=== PATIENT | male | born 1950 | race Caucasian/White ===

== ENCOUNTER 2021-12-19 09:20 | Emergency (ER) | payer MEDICARE, MEDICAID, SELFPAY ==
--- NOTE | ~2021-12-19 | XR_ITS ---
EXAMINATION: XR chest 1V portable INDICATION: Choking TECHNIQUE: Portable AP chest at 1107 hours COMPARISON: None available FINDINGS: There is mild atelectasis of the lung bases. There is no pleural effusion or pneumothorax. The cardiomediastinal silhouette is normal. IMPRESSION: 1. Mild atelectasis of the lung bases. Reviewed, dictated and finalized at location [facility].
[2021-12-19 10:15] VITALS: BP 100/72; PULSE 72; RESP 20; TEMP 36.3; O2SAT 98
--- NOTE | 2021-12-19 11:23 | ED.GENADULT ---
HPI - General Adult General Chief complaint: Unspecified Stated complaint: AMBULANCE Time Seen by Provider: 12/19/21 11:23 Source: patient Mode of arrival: EMS History of Present Illness HPI narrative: is a 71-year-old gentleman presents from assisted living with a choking episode apparently the patient was choking on some pork rinds was able to speak and was not short of breath with no nausea vomiting no abdominal pain, the patient was brought in via EMS patient is clearly back to his normal self and lungs are clear no nausea vomiting no abdominal pain no choking at this time. Onset (ago): hour(s) Severity: mild Review of Systems Review of Systems: All systems reviewed & are unremarkable except as noted in HPI and below PMFSH Past Medical History Medical History Dementia Exam Const: General: cooperative, healthy appearing, comfortable, no acute distress and well developed HENMT: Head: normal to inspection General nose exam: Normal external nose present Face and sinus: normal facial exam Mouth: Yes Normal oral and palatal mucosa present Throat: posterior oropharynx normal Eyes: General: appearance normal, both eyes and all related structures Neck: Neck: normal visual inspection, full ROM and no lymphadenopathy Chest: Chest palpation & inspection: normal inspection of the chest Resp: Effort & Inspection: normal respiratory effort Cardio: Jugular venous distension: no JVD GI: Inspection: normal to inspection Back/Spine/Pelvis: Back: no CVA tenderness Cervical Spine: normal cervical lordosis Skin: General skin exam: normal color and no rashes or lesions noted Neuro: General: gait normal Course Course Emergency Course: x-ray was reviewed with patient and was within normal limits. Vital Signs Vital signs: Vital Signs Temperature 36.3 C L 12/19/21 10:15 Pulse Rate 72 12/19/21 10:15 Respiratory Rate 12/19/21 10:15 Blood Pressure 100/72 12/19/21 10:15 Pulse Oximetry 98 12/19/21 10:15 Temperature 36.3 C L 12/19/21 10:15 Pulse Rate 72 12/19/21 10:15 Respiratory Rate 20 12/19/21 10:15 Blood Pressure 100/72 12/19/21 10:15 Pulse Oximetry 98 12/19/21 10:15 Medical Decision Making Vital Signs Vital Signs: Vital Signs Temperature 36.3 C L 12/19/21 10:15 Pulse Rate 72 12/19/21 10:15 Respiratory Rate 20 12/19/21 10:15 Blood Pressure 100/72 12/19/21 10:15 Pulse Oximetry 98 12/19/21 10:15 Temperature 36.3 C L 12/19/21 10:15 Pulse Rate 72 12/19/21 10:15 Respiratory Rate 20 12/19/21 10:15 Blood Pressure 100/72 12/19/21 10:15 Pulse Oximetry 98 12/19/21 10:15 Critical Care Time Critical Care Time Critical Care Time: No Discharge Plan Discharge Clinical Impression: Choking Qualifiers: Encounter type: initial encounter Qualified Code(s): T17.308A - Unspecified foreign body in larynx causing other injury, initial encounter Additional Instructions: follow-up with primary care physician if symptoms persist or worsen. Follow-up/Referrals: Sivan,IRVIN Odell [Primary Care Provider] - Time of Disposition: 11:26
[2021-12-19 11:52] VITALS: BP 104/63; PULSE 66; RESP 20; TEMP 36.9; O2SAT 98
== END 2021-12-19 11:54 | disposition home or self-care (01) ==
PROVIDERS: Emergency Provider Emergency Medicine; PCP Physician Assistant
DX: T17.308A Unspecified foreign body in larynx causing other injury, initial encounter (principal)
CPT/HCPCS: 71045; 99283

== ENCOUNTER 2021-12-22 12:57 | Emergency (ER) | payer MEDICARE, MEDICAID, SELFPAY ==
--- NOTE | ~2021-12-22 | XR_ITS ---
EXAMINATION: XR chest 2V DATE: 12/22/2021 13:20 INDICATION: Globus sensation TECHNIQUE: AP and lateral views of the chest are obtained. COMPARISON: 12/19/2021 FINDINGS: Mild atelectasis of the lung bases has improved. There is no pleural effusion or pneumothor ax. The cardiomediastinal silhouette is normal. There is moderate thoracic and severe lumbar spondylo sis. There is a lucent lesion with sclerotic margins in the left humeral shaft. IMPRESSION: 1. Mild atelectasis of the lung bases with improvement. 2. Lucent lesion of the left humerus. Follow-up with nonemergent, dedicated left humerus radiographs is recommended. Reviewed, dictated and finalized at location A. IMPRESSION: 1. Mild atelectasis of the lung bases with improvement. 2. Lucent lesion of the left humerus. Follow-up with nonemergent, dedicated lef t humerus radiographs is recommended.
[2021-12-22 13:00] VITALS: BP 141/76; PULSE 97; RESP 20; TEMP 36.4; O2SAT 97
--- NOTE | 2021-12-22 13:15 | ED.GENADULT ---
HPI - General Adult General Chief complaint: Skin/Abscess/Foreign Body Stated complaint: ambulance Time Seen by Provider: 12/22/21 12:59 Source: patient and EMS Mode of arrival: ambulatory Limitations: no limitations History of Present Illness HPI narrative: Rosendo is a 71M with a PMH of GERD and ingested foreign bodies requiring endoscopic removal that was brought in by EMS choking. He tried eating a pork steak without his dentures and developed a globus sensation and cannot get anything down. There is no CP, SOB, N/V or syncope. Related Data Home Medications Medication Instructions Recorded Confirmed Zoloft 100 mg BYMOUTH DAILY 12/22/21 12/22/21 buspirone 5 mg PO BID 12/22/21 12/22/21 divalproex 125 mg PO DAILY 12/22/21 12/22/21 famotidine 20 mg PO DAILY 12/22/21 12/22/21 metformin 500 mg PO BID 12/22/21 12/22/21 mirtazapine 15 mg PO HS 12/22/21 12/22/21 quetiapine 50 mg PO DAILY 12/22/21 12/22/21 quetiapine 100 mg PO DAILY 12/22/21 12/22/21 Allergies Allergy/AdvReac Type Severity Reaction Status Date / Time codeine Allergy Other Verified 12/22/21 17:54 Review of Systems Constitutional: Constitutional: Reports no additional constitutional complaints Eyes: Eyes: Reports no additional eye complaints ENT: Reports system reviewed and no additional complaints, except as documented Cardiovascular: Cardiovascular: Reports no additional cardiovascular complaints Respiratory: Respiratory: Reports no additional respiratory complaints Gastrointestinal: Gastrointestinal: Reports as per HPI Genitourinary: Genitourinary: Reports no additional male genitourinary complaints Musculoskeletal: Musculoskeletal: Reports no additional musculoskeletal complaints Integumentary/Breasts: Skin/Breast: Reports system reviewed and no additional complaints, except as docu Neurologic: Reports system reviewed and no additional complaints, except as documented Psychiatric: Psychiatric: Reports no additional psychiatric complaints Endocrine: Endocrine: Reports no additional endocrine complaints Hematologic/Lymphatic: Hematologic/Lymphatic: Reports no additional hematologic/lymphatic complaints Allergic/Immunologic: Allergic/Immunologic: Reports no additional allergic/immunologic complaints [facility] Past Medical History Medical History (Updated 12/22/21 @ 17:52 by Ameena Campos CRNA) Dementia Diabetes GERD (gastroesophageal reflux disease) Social History Social History (Updated 12/22/21 @ 17:55 by Ameena Campos CRNA) Smoking status: Former smoker Tobacco type: cigarettes Exam Const: General: alert Orientation/consciousness: patient oriented x3 Limitations: No altered mental status Other: Mild distress HENMT: Head: normal to inspection Other: Excessive drooling at the bedside into and emesis bag and he was leaning forward. Eyes: Conjunctivae: conjunctivae normal Pupils: Equal, round and reactive pupils present Neck: Neck: normal visual inspection Chest: Chest palpation & inspection: normal inspection of the chest Resp: Effort & Inspection: normal respiratory effort Auscultation: clear to auscultation bilaterally Cardio: Rate: regular rate Rhythm: regular rhythm GI: Inspection: non-distended GI Palp: Yes Soft to palpation, No Tenderness to palpation present (GI) and No Guarding due to palpation present (GI) Skin: General skin exam: normal color Rashes: no rashes Neuro: General: patient oriented x3 and moves all extremities Extrem: General: normal to inspection Psych: Mental Status: mental status grossly normal Course Course Emergency Course: Ordered Xray and labs. I spoke with Dr. Condon of GI who recommended 1mg of glucagon, sublingual nitro, ativan and Cardiazem spread out over half an hour if BP tolerated it. EXAMINATION: XR chest 2V DATE: 12/22/2021 13:20 INDICATION: Globus sensation TECHNIQUE: AP and lateral views of the chest are obtained. COMPARISON: 12/19/2021 FINDING
[2021-12-22 13:21] LABS: Basophils Absolute Auto 0.04 K/mm3 (0.00-0.10); Basophils Percent Auto 0.5 % (0.0-1.0); Eosinophils Absolute Auto 0.08 K/mm3 (0.02-0.50); Eosinophils Percent Auto 1.1 % (1.0-6.0); Hematocrit 48.5 % (37.0-46.0); Hemoglobin 15.8 g/dL (12.4-15.3); Immature Granulocyte Absolute 0.02 K/mm3 (0.00-0.00); Immature Granulocyte Percent A 0.3 % (0.0-0.0); Lymphocytes Absolute Auto 2.27 K/mm3 (1.10-4.50); Lymphocytes Percent Auto 31.2 % (18.0-42.0); Mean Corpuscular HGB Conc 32.6 g/dL (32.0-36.0); Mean Corpuscular Hemoglobin 30.5 pg (27.0-31.0); Mean Corpuscular Volume 93.6 fL (78.0-102.0); Mean Platelet Volume 10.4 fl (8.7-11.0); Monocytes Absolute Auto 0.45 K/mm3 (0.10-0.90); Monocytes Percent Auto 6.2 % (2.0-11.0); Neutrophils Absolute Auto 4.4 K/mm3 (1.7-7.2); Neutrophils Percent Auto 60.7 % (50.0-70.0); Platelet Count Result 318 K/mm3 (150-420); Red Blood Count 5.18 M/mm3 (4.70-6.10); White Blood Count 7.3 K/mm3 (4.8-10.8)
[2021-12-22 13:38] LABS: Alanine Aminotransferase 23 U/L (16-63); Albumin Level 4.2 g/dL (3.4-5.0); Alkaline Phosphatase 114 U/L (46-116); Anion Gap 8 mmol/L (8-16); Aspartate Amino Transferase 26 U/L (15-37); Bilirubin,Total 0.5 mg/dL (0.00-1.00); Blood Urea Nitrogen 18 mg/dL (7-18); Calcium 9.8 mg/dL (8.5-10.1); Carbon Dioxide 27 mmol/L (21-32); Chloride 101 mmol/L (98-108); Estimated Glomerular Filt Rate > 60; Glucose 121 mg/dL (70-99); Magnesium 2.3 mg/dL (1.8-2.4); Osmolality Calculated 284 mOsm/kg (285-295); Potassium 4.6 mmol/L (3.5-5.1); Sodium 136 mmol/L (136-145); Total Protein 7.9 g/dL (6.4-8.2)
[2021-12-22] MEDS: NITROGLYCERIN SL 0.4 MG TABLET SUBLINGUAL ×2 (13:47→15:10)
[2021-12-22] MEDS: GLUCAGON FOR INJ 1 MG VIAL IM (13:48)
--- NOTE | 2021-12-22 13:50 | PC.NURSE ---
pt watching tv. no resp distress. continues with excessive clear phlegm , spitting in bag.
[2021-12-22 14:10] VITALS: BP 121/74; PULSE 75; RESP 20; O2SAT 96
[2021-12-22] MEDS: LORazepam INJ (*CRX) 2 MG/ML VIAL 1 MG IV PUSH (14:18)
[2021-12-22] MEDS: dilTIAZem HCl INJ 25 MG/5 ML VIAL 5 MG IV PUSH (14:47)
[2021-12-22 16:26] VITALS: BP 103/69; PULSE 72; RESP 20; O2SAT 97
== END 2021-12-22 16:55 | disposition short-term general hospital (02) ==
PROVIDERS: Emergency Provider Family Medicine; PCP Physician Assistant
DX: K22.2 Esophageal obstruction (principal); E11.9 Type 2 diabetes mellitus without complications; K21.9 Gastro-esophageal reflux disease without esophagitis; Z87.891 Personal history of nicotine dependence
CPT/HCPCS: 36415; 71046; 80053; 83735; 85025; 96372; 96374; 96375; 99285; A9270; J1610; J2060

== ENCOUNTER 2021-12-22 17:31 | Day surgery (SDC) | payer MEDICARE, SELFPAY ==
--- NOTE | 2021-12-22 17:51 | P.PNAN_ITS ---
Anes - Eval Pre Procedure Date/Time: 12/22/21 17:51 Pre Op Diagnosis: gi Patient Data Age: 71 Gender: M Height: Weight: Allergies Allergy/AdvReac Type Severity Reaction Status Date / Time codeine Allergy Other Verified 12/22/21 17:54 Home Medications Medication Instructions Recorded Confirmed Type Zoloft 100 mg BYMOUTH DAILY 12/22/21 12/22/21 History buspirone [BuSpar] 5 mg PO BID 12/22/21 12/22/21 History divalproex 125 mg PO DAILY 12/22/21 12/22/21 History famotidine 20 mg PO DAILY 12/22/21 12/22/21 History metformin 500 mg PO BID 12/22/21 12/22/21 History mirtazapine 15 mg PO HS 12/22/21 12/22/21 History quetiapine 50 mg PO DAILY 12/22/21 12/22/21 History quetiapine 100 mg PO DAILY 12/22/21 12/22/21 History Patient hx anesthesia problems: none Family hx anesthesia problems: none Results Review: All pre-operative results and documents have been reviewed as part of the pre-operative evaluation. [facility] Past Medical History Medical History (Updated 12/22/21 @ 17:52 by Ameena Campos CRNA) Dementia Diabetes GERD (gastroesophageal reflux disease) Social History Social History (Updated 12/22/21 @ 17:55 by Ameena Campos CRNA) Smoking status: Former smoker Tobacco type: cigarettes Exam Day of Procedure 12/22/21 17:51 Patient weight: normal Heart: regular rate and rhythm Lungs: normal air movement Airway: Mallampati scale class II Neurological: alert and oriented
--- NOTE | 2021-12-22 17:56 | WPDANESEFPP ---
Anes - Eval Final PreProcedure Day of Procedure 12/22/21 17:56 Patient weight: thin Heart: regular rate and rhythm Lungs: clear to auscultation and normal air movement Airway: Mallampati scale class II Neurological: alert and oriented Last oral intake: >/= 8 hours ASA classification: III Emergent: yes Anesthetic plan: proceed Anesthesia type and monitoring: general GIVS and standard monitoring Results Review: All pre-operative results and documents have been reviewed as part of the pre-operative evaluation. Informed Consent: The patient's anesthetic plan and its attendant risks and benefits were discussed with the patient/family/POA. Questions were solicited and answers provided to the satisfaction of the patient/family/POA.
[2021-12-22] MEDS: LACTATED RINGERS 1,000 ML 150 ML IV CONT (18:08)
[2021-12-22 18:09] VITALS: BP 110/84; PULSE 73; RESP 18; TEMP 36.1; O2SAT 98
[2021-12-22 18:25] VITALS: BP 120/61; PULSE 68; RESP 26; O2SAT 95
--- NOTE | 2021-12-22 18:33 | W.PM.PROC2 ---
Procedure Note - Detailed Date of Procedure 12/22/21 Pre-op Diagnosis Dysphagia/esophageal foreign body/food bolus impaction Post-op Diagnosis Same Procedure Performed EGD Surgeon Kev Condon MD Anesthesia MAC Indications Dysphagia/esophageal foreign body/food bolus impaction Description of Procedure KEV CONDON MD, FACG, FACP UPPER ENDOSCOPY 12-22-2021 INDICATION: Dysphagia/esophageal foreign body/food bolus impaction. POST-OP: Esophageal foreign body/food bolus impaction relieved. Esophageal dilation done. 5 cm hiatal hernia. SEDATION: Per anesthesia With the patient in the left lateral decubitus position, the [facility] upper endoscope was used to easily intubate the patient?s esophagus and advanced to the third portion of the duodenum. Careful inspection of the mucosa was made upon insertion and withdrawal of the endoscope with retroflexion in the stomach. FINDINGS: Esophagus: Food bolus impaction noted in the esophagus and easily pushed through into the stomach. SC Jx at 40 cm with a ring. There is also another stricture at 25 cm. No esophagitis, mass or Guzmán?s. Stomach: 5 cm hiatal hernia Fundus, body and antrum normal. No ulceration, erosion, inflammation, AVM or malignancy. Duodenum: Normal in the bulb, second and third portion. 20 mm TTS balloon dilator inflated to maximal diameter in the esophagus in four stations for one minute each. No complications, blood loss or implants. ASSESSMENT AND PLAN: A. GERD: - Stable on meds; continue - No esophagitis or Guzmán?s B. Dysphagia/esophageal foreign body/food bolus impaction: - Likely secondary to esophageal strictures - Esophageal foreign body/food bolus impaction relieved - Esophageal dilation done - Omeprazole 40 mg po BID - No aspirin, NSAIDS or anticoagulants for two weeks - Repeat EGD two months C. Small hiatal hernia: observe. D. Screening for colon cancer: colonoscopy or Cologuard as OP Kev Condon M.D. [phone] Cc: Dr. Ava Finnegan Implants none Estimated Blood Loss 0 Drains No Packing No Pathology None sent Complications None Condition Stable Disposition Other (Home)
[2021-12-22 18:35] VITALS: BP 121/78; PULSE 65; RESP 22; O2SAT 99
--- NOTE | 2021-12-22 18:38 | WPDGICN ---
Assessment and Plan Additional Plan GI Consultation Dr. Condon December 22, 2021 This is a 71 year old male patient transferred from [facility] for treatment of esophageal foreign body/food bolus. He has a history of GERD, Diabetes, anxiety/depression and dementia. Patient is seen at the request of the [facility] service to evaluate for same. The patient?s primary care provider is Dr. Ava Finnegan. Patient ate pork steak without dentures about noon today and could not pass the bolus. He could not handle his secretions and came to the ER. No resolution with Glucagon, NTG, Ativan IV and CCB IV. Transferred here for endoscopy. Appears improved now. Patient states this has happened multiple times before. Appears to have had similar episode 12/19/2021. Otherwise patient denies abdominal pain, nausea or vomiting, bloating, loss of appetite or weight, early satiety, heartburn (on meds), diarrhea or constipation, rectal bleeding or melena. Patient denies fever, jaundice, scleral icterus, dark urine, light stool, itching, hot or cold intolerance, chest pain, shortness of breath at rest, hematuria, dysuria, new cough or visual changes, easy bruising, tingling of the skin, bone pain or tremors. No history of endocarditis, rheumatic fever, dental prophylaxis, heart valve surgery, bleeding disorder or joint replacement. NKDA Medications: Pepcid, Buspar, divalproex, metformin, mirtazipine, Quetiapine. Social history: smoker (cessation recommended), nondrinker. Family history: negative for GI malignancy. Last colonoscopy was about 10 years ago. Physical exam: No lower extremity edema, jaundice, spider angioma, palmar erythema. Skull is normocephalic atraumatic. Sclera are non-icteric. Oropharynx is clear. Neck is supple without thyromegaly. Lungs are clear. Heart is rate and rhythm regular. S1 and S2 normal. Normal active bowel sounds. Non-tender, non-rigid, non-distended without hepatosplenomegaly or masses. No guarding. Rectal is deferred. Neuro is conscious and alert ?3. Labs: CBC and LFT's basically normal. Imaging: N/A Assessment and plan: A. GERD: continue meds. B. Dysphagia with esophageal food bolus/foreign body: - Likely underlying stricture > neoplasm, other - EGD C. Screening for colon cancer: consider colonoscopy or Cologuard as OP. The procedure of upper endoscopy, its indications, alternatives of barium studies and risks including perforation, bleeding, infection, reaction to medication as well as the possible need for blood or surgery were discussed with the patient. Patient voices understanding, agrees to proceed and provides informed consent. Thank you very much for allowing me to share in the care of your patient. Further recommendations after EGD. Kev Condon M.D. (c) [phone] Cc: Dr. Ava Finnegan GI Consult Note Consult date/time: 12/22/21 18:38 HPI: DAMON MARKHAM is a 71 year old male [facility] Past Medical History Medical History (Updated 12/22/21 @ 17:52 by Ameena Campos CRNA) Dementia Diabetes GERD (gastroesophageal reflux disease) Social History Social History (Updated 12/22/21 @ 17:55 by Ameena Campos CRNA) Smoking status: Former smoker Tobacco type: cigarettes Meds Home Medications and Allergies Home Medications Medication Instructions Recorded Confirmed Type Zoloft 100 mg BYMOUTH DAILY 12/22/21 12/22/21 History buspirone [BuSpar] 5 mg PO BID 12/22/21 12/22/21 History divalproex 125 mg PO DAILY 12/22/21 12/22/21 History famotidine 20 mg PO DAILY 12/22/21 12/22/21 History metformin 500 mg PO BID 12/22/21 12/22/21 History mirtazapine 15 mg PO HS 12/22/21 12/22/21 History quetiapine 50 mg PO DAILY 12/22/21 12/22/21 History quetiapine 100 mg PO DAILY 12/22/21 12/22/21 History Allergies Allergy/AdvReac Type Severity Reaction Status Date / Time codeine Allergy Other Verified 12/22/21 17:54 Vital Signs Vital Signs - 24 hr 12/22/21 18:09 12/22/21
[2021-12-22 18:45] VITALS: BP 126/77; PULSE 69; RESP 21; O2SAT 100
== END 2021-12-22 19:37 ==
PROVIDERS: PCP Physician Assistant; Visit Provider Internal Medicine Gastroenterology
PROC: 0DJ08ZZ Inspection of Upper Intestinal Tract, Via Natural or Artificial Opening Endoscopic (ICD-10-PCS; CPT 43235; principal; 2021-12-22 17:30)
DX: T18.128A Food in esophagus causing other injury, initial encounter (principal); K44.9 Diaphragmatic hernia without obstruction or gangrene; K21.9 Gastro-esophageal reflux disease without esophagitis; F03.90 Unspecified dementia, unspecified severity, without behavioral disturbance, psychotic disturbance, mood disturbance, and anxiety; E11.9 Type 2 diabetes mellitus without complications; Z79.84 Long term (current) use of oral hypoglycemic drugs
CPT/HCPCS: 43247; 43249; C1726; J2405; J2704; J7120

== ENCOUNTER 2022-08-31 09:14 | Emergency (ER) | payer MEDICARE, MEDICAID, SELFPAY ==
--- NOTE | ~2022-08-31 | CT_ITS ---
EXAMINATION: CT cervical spine wo con DATE: 08/31/2022 09:56 INDICATION: Fall. Possible head and neck injuries. Altered mental state. TECHNIQUE: Computed tomography (CT) of the cervical spine was performed without intravenous contrast. Automated exposure control and iterative reconstruction technique were employed. Exam dose: 269.68 mGy-cm total exam DLP. COMPARISON: None FINDINGS: There is prominent reversal cervical curvature, likely due to muscle spasm. C1 and C2 are normally aligned and the odontoid process is intact. There is minimal anterolisthesis and mild degenerative disc disease at C2-3 and C3-4 and C4-5. There are severe degenerative disc disease at C5-6, C6-7 and C7-T1 and with mild anterolisthesis at C 7-T1. There is fusion between the vertebral bodies at C6 and C7. There is degenerative change at the apophyseal joints. Prominent uncovertebral joint spurring is note d at C5-6 and C6-7. No fracture or dislocation or locked facet or prevertebral soft tissue swelling. . IMPRESSION: Prominent reversal cervical curvature which may be due to muscle spasm Severe cervical spondylosis No fracture or dislocation or locked facet Reviewed, dictated and finalized at [facility]. Reviewed, dictated and finalized at location A. [employer] IMPRESSION: Prominent reversal cervical curvature which may be due to muscle s pasm Severe cervical spondylosis No fracture or dislocation or locked facet
--- NOTE | ~2022-08-31 | CT_ITS ---
EXAMINATION: CT brain wo con DATE: 08/31/2022 09:54 INDICATION: Fall, possible head injury. Altered mental status. TECHNIQUE: Computed tomography (CT) of the head was performed without intravenous contrast. The mA wa s adjusted according to patient size. Iterative reconstruction technique was employed. Exam dose: 60 5.33 mGy-cm total exam DLP. COMPARISON: None FINDINGS: Vertebral, basilar and carotid siphon internal carotid artery calcifications are noted. The re is nonspecific diminished attenuation of the cerebral white matter, likely due to chronic small ve ssel ischemic change. Chronic basal ganglia lacunar infarcts. No intracranial mass lesion or hemorrha ge. No midline shift or mass effect. Moderate cerebral and cerebellar volume loss. No subdural or epidural hematoma is detected. No fracture or bone destruction of the cranial vault. The mastoid air cells and included paranasal sinuses are normally developed and aerated. IMPRESSION: Cerebral atherosclerosis and chronic small vessel ischemic changes of the cerebral white matter, chronic basal ganglia lacunar infarcts No acute intracranial finding Reviewed, dictated and finalized at [facility]. Reviewed, dictated and finalized at [facility]. [employer]
[2022-08-31 09:14] VITALS: BP 106/70; PULSE 71; RESP 16; TEMP 36.6; O2SAT 98
--- NOTE | 2022-08-31 09:22 | ECG_ITS ---
Measurements Intervals [place] Rate: 73 P: 44 KS: 163 QRS: -28 QRSD: 93 T: 23 QT: 373 QTc: 412 Interpretive Statements SINUS RHYTHM DELAYED PRECORDIAL R/S TRANSITION BORDERLINE T WAVE ABNORMALITY- INFERIOR LEADS BASELINE ARTIFACT- I, II, III, AVR, AVL, AVF, V1-V6 BORDERLINE ECG NO PREVIOUS ECG AVAILABLE FOR COMPARISON Electronically Signed On 08-31-2022 14:00:19 [employer] by Ramiro Barnett D.O.
--- NOTE | 2022-08-31 09:32 | ED.FALL ---
HPI - Fall General Chief Complaint: Fall Stated Complaint: fall/ maybe altered Time Seen by Provider: 08/31/22 09:17 Source: patient, RN notes reviewed and old records reviewed Mode of arrival: EMS Limitations: no limitations History of Present Illness HPI Narrative: Patient is a 72-year-old male who presents the ED via EMS from local care home with report of fall. Per care home report, patient had a fall at 0230 this morning. Staff reported he seemed slightly off today, though Hx of dementia and typically only A&O X 2 at baseline. residential staff also reported patient's BP to be slightly low, so EMS was called to bring patient here. BP upon arrival 106/70. Patient reports he lost his balance while trying to urinate this morning. He tried to catch himself and was able to brace his fall somewhat. He is unsure if he hit his head. Denied LOC. Denied prodromal symptoms. He denies any pain currently. No other complaints. He is not on any blood thinners. Related Data Home Medications Medication Instructions Recorded Confirmed Zoloft 100 mg BYMOUTH DAILY 12/22/21 12/22/21 buspirone 5 mg tablet 5 mg PO BID 12/22/21 12/22/21 divalproex 125 mg capsule,delayed 125 mg PO DAILY 12/22/21 12/22/21 release sprinkle famotidine 20 mg tablet 20 mg PO DAILY 12/22/21 12/22/21 metformin 500 mg tablet 500 mg PO BID 12/22/21 12/22/21 mirtazapine 15 mg tablet 15 mg PO HS 12/22/21 12/22/21 quetiapine 100 mg tablet 100 mg PO DAILY 12/22/21 12/22/21 quetiapine 50 mg tablet 50 mg PO DAILY 12/22/21 12/22/21 Allergies Allergy/AdvReac Type Severity Reaction Status Date / Time codeine Allergy Other Verified 12/22/21 17:54 Review of Systems Review of Systems: CONSTITUTIONAL: Denies fever, chills, or sweats. EYES: Denies visual changes. CARDIOVASCULAR: Denies chest pain. RESPIRATORY: Denies dyspnea. GASTROINTESTINAL: Denies abdominal pain, nausea, vomiting, or diarrhea. MUSCULOSKELETAL: Denies back pain, joint pain, or myalgia. NEUROLOGIC: Reports possible HI. Denies dizziness, lightheadedness, LOC, headache, numbness, or weakness. All systems reviewed & are unremarkable except as noted in HPI and below PMFSH Past Medical History Medical History (Updated 08/31/22 @ 13:38 by Gabriela Willams PA-C) Dementia Diabetes GERD (gastroesophageal reflux disease) Surgical History Surgical History (Updated 08/31/22 @ 09:34 by Gabriela Willams PA-C) No pertinent past surgical history Social History Social History Smoking status: Former smoker Tobacco type: cigarettes Exam Narrative: GENERAL: Elderly, well-nourished, non-toxic, in no acute distress. HEAD: Normocephalic, atraumatic. EYES: PERRLA/EOMI, conjunctiva clear. No nystagmus. NECK: Supple. No adenopathy, no masses. No midline spinal tenderness. RESPIRATORY: Airway patent, respirations nonlabored. Clear to auscultation bilaterally, no rales, rhonchi, wheezing. CARDIOVASCULAR: Regular rate and rhythm without murmurs, rubs, or gallops. Radial pulses 2+ and equal bilaterally. ABDOMINAL: Soft, nontender, nondistended, no hepatosplenomegaly. Normoactive BS. MUSCULOSKELETAL: Moves all extremities. Strength/ROM intact without gross deformities. No edema. No midline thoracic or lumbar spinal tenderness. SKIN: Warm, dry, normal color. No rashes. NEURO: A&O X3. [place]. Speech clear. Cranial nerves II-XII grossly intact. Steady gait. No ataxic movements. No focal deficits. PSYCHIATRIC: Appropriate mood and affect. Normal interaction. Course Vital Signs Vital signs: Vital Signs Temperature 97.8 F 08/31/22 09:14 Pulse Rate 71 08/31/22 09:14 Respiratory Rate 16 08/31/22 09:14 Blood Pressure 106/70 08/31/22 09:14 Pulse Oximetry 98 08/31/22 09:14 Temperature 97.8 F 08/31/22 09:14 Pulse Rate 71 08/31/22 09:14 Respiratory Rate 16 08/31/22 09:14 Blood Pressure 106/70 08/31/22 09:14 Pulse Ox
[2022-08-31 10:34] LABS: Basophils Absolute Auto 0.1 K/mm3 (0.0-0.1); Basophils Percent Auto 0.3 % (0.2-1.2); Eosinophils Percent Auto 0.1 % (0-4.4); Hematocrit 36.4 % (42.0-52.0); Hemoglobin 11.5 g/dL (14.0-18.0); Immature Granulocyte Absolute 0.12 K/mm3 (0.00-0.031); Immature Granulocyte Percent A 0.7 % (0-0.5); Lymphocytes Absolute Auto 1.48 K/mm3 (0.9-3.2); Lymphocytes Percent Auto 8.5 % (18.3-44.2); Mean Corpuscular HGB Conc 31.6 g/dl (32-36); Mean Corpuscular Hemoglobin 28.2 pg (26-34); Mean Corpuscular Volume 89.2 fl (80-100); Mean Platelet Volume 8.9 fl (7.4-10.4); Monocytes Percent Auto 5.9 % (2.6-8.5); Neutrophils Absolute Auto 14.8 K/mm3 (1.3-6.7); Neutrophils Percent Auto 84.5 % (45.5-73.1); Platelet Count Result 585 k/mm3 (150-375); Red Blood Count 4.08 M/mm3 (4.6-6.20); Red Cell Distribution Width 15.1 % (11.5-14.5); White Blood Count 17.5 K/mm3 (4.5-10.0)
[2022-08-31 10:43] LABS: Appearance Urine Slightly Cloudy (Clear); Bilirubin Urine Negative (Negative); Blood Urine 1+ (Negative); Color Urine Yellow (Yellow); Glucose Urine UA Negative (Negative); Ketones Urine Negative (Negative); Leukocyte Esterase Ur 2+ LEU/UL (Negative); Nitrate Urine Positive (Negative); Protein Urine 1+ mg/dL (Negative)
[2022-08-31 10:45] LABS: INR 1.3; Prothrombin Time 15.7 Seconds (11.1-14.7)
[2022-08-31 10:46] LABS: Partial Thromboplastin Time 31.6 SECONDS (22.3-36.8)
[2022-08-31 10:47] LABS: Bacteria Urine 2+ /hpf; Mucus Urine Rare /lpf; Squamous Epithelial Cell Urine Rare /hpf (Few); WBC Urine >75 /hpf
[2022-08-31 10:50] LABS: Alanine Aminotransferase 38 U/L (6-50); Albumin Level 3.7 g/dL (3.5-5.1); Alkaline Phosphatase 114 U/L (38-126); Anion Gap 6 mmol/L (8-16); Aspartate Amino Transferase 27 U/L (17-59); Bilirubin,Total 0.6 mg/dL (0.2-1.3); Blood Urea Nitrogen 18 mg/dL (9-20); Calcium 9.4 mg/dL (8.4-10.2); Carbon Dioxide 29 mmol/L (22-30); Chloride 100 mmol/L (98-107); Estimated CRCL calculation 66 ml/min; Estimated Glomerular Filt Rate > 60; Glucose 120 mg/dL (65-110); Potassium 4.1 mmol/L (3.4-5.0); Sodium 135 mmol/L (137-145)
[2022-08-31 10:51] LABS: Add Urine Microscopic? YES
[2022-08-31] MEDS: SODIUM CHLORIDE 0.9% IV 1,000 ML 999 ML IV CONT (11:11)
--- NOTE | 2022-08-31 11:13 | PC.NURSE ---
report received from Gabriela BILLY
--- NOTE | 2022-08-31 12:41 | PC.NURSE ---
1239 lab called stated they undeceived [facility] supervisor laboratory notified
--- NOTE | 2022-08-31 12:52 | PC.NURSE ---
Steffi Mcintyre from lab called regarding lactic acid being rejected. Steffi Mcintyre stated, I already got his cultures. I can't get any more blood out of him. I don't know what to tell you. EDP made aware.
== END 2022-08-31 13:54 ==
PROVIDERS: Emergency Medicine; Emergency Provider Physician Assistant; PCP Physician Assistant
DX: N30.01 Acute cystitis with hematuria (principal); D72.829 Elevated white blood cell count, unspecified; F03.90 Unspecified dementia, unspecified severity, without behavioral disturbance, psychotic disturbance, mood disturbance, and anxiety; E11.9 Type 2 diabetes mellitus without complications; K21.9 Gastro-esophageal reflux disease without esophagitis; Z79.84 Long term (current) use of oral hypoglycemic drugs; Z87.891 Personal history of nicotine dependence; I67.2 Cerebral atherosclerosis; M47.812 Spondylosis without myelopathy or radiculopathy, cervical region; R94.31 Abnormal electrocardiogram [ECG] [EKG]; W18.39XA Other fall on same level, initial encounter
CPT/HCPCS: 36415; 51701; 70450; 72125; 80053; 81001; 85025; 85610; 85730; 87040; 87077; 87086; 87186; 93005; 96361; 96365; 99284; J0696; J7030

== ENCOUNTER 2023-02-20 17:24 | Emergency (ER) | payer MEDICARE, MEDICAID, SELFPAY ==
--- NOTE | ~2023-02-20 | CT_ITS ---
EXAMINATION: CT abdomen pelvis wo con DATE: 02/20/2023 18:53 INDICATION: right flank pain history of kidney stones TECHNIQUE: Computed tomography (CT) of the abdomen and pelvis was performed without intravenous contr ast. Automated exposure control and iterative reconstruction technique were employed. The dose-length product was 288.03 mGy-cm. COMPARISON: None. FINDINGS: Motion limited examination, most severe in the lower abdomen. Lower thorax: Coronary artery and mitral calcifications. Senescent changes in the lungs, with bibasil ar scar/atelectasis. Moderate hiatal hernia. Liver: Normal. Biliary/Gallbladder: Cholelithiasis. No bile duct dilation. Pancreas: No mass or duct dilation. Spleen: Normal. Adrenals:No mass. Kidneys: Bilateral simple renal cysts. Bilateral cortical thinning and scarring. No suspicious mass, stone, or hydronephrosis. GI tract: No small or large bowel dilation. Appendix not confidently visualized. Mesentery/Peritoneum: No ascites, mass, or free air. Retroperitoneum: No mass. Atherosclerotic abdominal aortic and/or arterial calcifications. Pelvis: 2.1 cm bladder calcification. Multiple surgical clips in the prostate bed. Surgically absent prostate. Soft Tissues: Soft tissues and body wall unremarkable. Bones: No acute osseous finding. IMPRESSION: No acute process detected in the abdomen or pelvis. No CT evidence of nephrolithiasis or obstructive uropathy. 2.1 cm bladder stone. Additional chronic/incidental findings detailed above. Reviewed, dictated and finalized at [facility].
--- NOTE | 2023-02-20 17:25 | ED.ABDPAIN ---
HPI - Abdominal Pain General Chief Complaint: Urogenital-Male Stated Complaint: R FLank Pain Time Seen by Provider: 02/20/23 17:25 Source: patient, EMS and RN notes reviewed Mode of arrival: ambulatory Limitations: dementia History of Present Illness MD elicited complaint: flank pain Pertinent past history: kidney stones ( 10-20 years ago) Onset (ago): day(s) (1) Pain Consistency: intermittent Location: L flank Severity: moderate Quality: stabbing and sharp Radiation: none Migration to: no migration Exacerbating factors: movement Relieving factors: nothing Context: confirms history of similar episodes Associated symptoms: nausea and vomiting Related Data Home Medications Medication Instructions Recorded Confirmed buspirone 5 mg tablet 5 mg PO BID 12/22/21 02/20/23 divalproex 125 mg capsule,delayed 125 mg PO BID 12/22/21 02/20/23 release sprinkle (Depakote Sprinkles) mirtazapine 15 mg tablet 45 mg PO DAILY 12/22/21 02/20/23 quetiapine 100 mg tablet 150 mg PO HS 12/22/21 02/20/23 acetaminophen 325 mg tablet 325 - 650 mg PO Q8H PRN Pain 02/20/23 02/20/23 (Scale Score 1-3) benzonatate 100 mg capsule 100 mg PO BID PRN Pain (Scale 02/20/23 02/20/23 Score 4-6) famotidine 20 mg tablet (Pepcid) 20 mg PO BID gerd 02/20/23 02/20/23 hydroxyzine HCl 50 mg tablet 50 mg PO TID 02/20/23 02/20/23 omeprazole 40 mg capsule,delayed 40 mg PO DAILY 02/20/23 02/20/23 release polyethylene glycol 3350 17 gram 17 g PO DAILY 02/20/23 02/20/23 oral powder packet (Miralax) sertraline 100 mg tablet 100 mg PO DAILY 02/20/23 02/20/23 Allergies Allergy/AdvReac Type Severity Reaction Status Date / Time codeine Allergy Unknown Unknown Verified 02/20/23 18:01 Review of Systems Review of Systems: All systems reviewed & are unremarkable except as noted in HPI and below PMFSH Past Medical History Medical History Dementia Diabetes GERD (gastroesophageal reflux disease) Surgical History Surgical History No pertinent past surgical history Social History Social History Smoking status: Former smoker Tobacco type: cigarettes Exam Const: General: no acute distress, alert and ill appearing acutely Nutritional Appearance: well nourished Orientation/consciousness: patient oriented x3 Limitations: other limitations ( hard of hearing) HENMT: Head: normal to inspection Ears: external ears normal Face/Nose/Sinus: Normal external nose present Face and sinus: normal facial exam Mouth: Yes moist mucous membranes Eyes: Conjunctivae: conjunctivae normal Pupils: Equal, round and reactive pupils present EOM: EOMs intact bilaterally Neck: Neck: normal visual inspection Resp: Effort & Inspection: normal respiratory effort Auscultation: clear to auscultation bilaterally Cardio: Rate: regular rate Rhythm: regular rhythm GI: GI Palp: Yes Soft to palpation and No Tenderness to palpation present (GI) Auscultation: normal bowel sounds Back/Spine/Pelvis: Back: CVA tenderness ( moderate on the right) Cervical Spine: cervical ROM normal Thoracic/Lumbar Spine: thoraco-lumbar ROM normal Skin: General skin exam: normal color Rashes: no rashes Neuro: General: patient oriented x3, moves all extremities, no focal motor deficits and CN's II-XI intact bilaterally Speech: normal speech Gait exam (Neuro): Normal gait present Extrem: General: normal to inspection and no clubbing, cyanosis or edema Psych: Mental Status: mental status grossly normal Affect: normal affect Attitude: cooperative Course Vital Signs Vital signs: Vital Signs Temperature 37.6 C H 02/20/23 17:34 Pulse Rate 78 02/20/23 17:34 Respiratory Rate 22 H 02/20/23 17:34 Blood Pressure 106/79 02/20/23 17:34 Pulse Oximetry 99 02/20/23 17:34 Oxygen Delivery Room Air 02/20/23 17:34 Tem
[2023-02-20 17:34] VITALS: BP 106/79; PULSE 78; RESP 22; TEMP 37.6; O2SAT 99
[2023-02-20] MEDS: ONDANSETRON HCL ODT 4 MG TABLET PO (17:36)
[2023-02-20] MEDS: KETOROLAC 30 MG/ML VIAL (*BKC) IM (17:36)
[2023-02-20 17:55] LABS: Hematocrit 41.8 % (37.0-46.0); Hemoglobin 13.3 g/dL (12.4-15.3); Mean Corpuscular HGB Conc 31.8 g/dL (32.0-36.0); Mean Corpuscular Hemoglobin 27.4 pg (27.0-31.0); Platelet Count Result 471 K/mm3 (150-420); Red Blood Count 4.86 M/mm3 (4.70-6.10); Red Cell Distribution Width 14.6 % (11.6-14.4)
[2023-02-20 17:57] LABS: White Blood Count 20.3 K/mm3 (4.8-10.8)
[2023-02-20 18:05] LABS: Appearance Urine Cloudy (Clear); Bilirubin Urine Negative (Negative); Blood Urine Negative (Negative); Color Urine Light Yellow (Yellow); Glucose Urine UA Negative (Negative); Ketones Urine Negative (Negative); Leukocyte Esterase Ur 3+ LEU/UL (Negative); Nitrate Urine Positive (Negative); Protein Urine 2+ (Negative); pH Urine 8.5 (5.0-8.0)
[2023-02-20 18:07] LABS: Add Urine Microscopic? YES
[2023-02-20 18:08] LABS: Bacteria Urine 2+ /hpf; RBC Urine None seen /hpf (0-2); Squamous Epithelial Cell Urine Rare /hpf (Few); WBC Urine 31-50 /hpf (0-3)
[2023-02-20 18:10] LABS: Alanine Aminotransferase 15 U/L (16-63); Albumin Level 3.4 g/dL (3.4-5.0); Alkaline Phosphatase 120 U/L (46-116); Anion Gap 9 mmol/L (8-16); Aspartate Amino Transferase 18 U/L (15-37); Bilirubin,Total 0.5 mg/dL (0.00-1.00); Blood Urea Nitrogen 16 mg/dL (7-18); CRP 5.4 mg/dL (0.0-0.9); Calcium 10.2 mg/dL (8.5-10.1); Carbon Dioxide 28 mmol/L (21-32); Chloride 101 mmol/L (98-108); Estimated CRCL calculation 52 ml/min; Estimated Glomerular Filt Rate > 60; Glucose 143 mg/dL (70-99); Osmolality Calculated 289 mOsm/kg (285-295); Potassium 5.1 mmol/L (3.5-5.1); Sodium 138 mmol/L (136-145); Total Protein 7.8 g/dL (6.4-8.2)
[2023-02-20 18:23] LABS: Band Neutrophils Percent 6 % (0-6); Basophils Percent Manual 1 % (0-1); Eosinophils Percent Manual 0 % (1-6); Lymphocytes Absolute Manual 2.03 K/mm3 (1.1-4.5); Lymphocytes Percent Manual 10 % (18-44); Monocytes Absolute Manual 1.01 K/mm3 (0.1-0.90); Monocytes Percent Manual 5 % (3-9); Neutrophils Absolute Manual 17.05 K/mm3 (1.3-6.7); Neutrophils Percent Manual 78 % (46-73); Platelet Estimate Adequate (Adequate); Total Cells Counted 100
--- NOTE | 2023-02-20 18:46 | PC.NURSE ---
REPORT FROM [facility] WAS CALLED BY RADHA AND SHE CAN BE CONTACTED FOR ANY QUESTIONS [phone]
[2023-02-20] MEDS: cefTRIAXone 1 GM, LIDOCAINE HCL 1% LOCAL INJ 2.1 ML IM (19:00)
--- NOTE | 2023-02-20 19:28 | PC.NURSE ---
1929 Report given to Shefali [facility] RN.
--- NOTE | 2023-02-20 19:46 | PC.NURSE ---
[facility] dispatch called to arrange transport for pt back to SNF. Dispatch states that both [facility] units are tied up on calls right now, and that one rig should be arriving to the ED shortly with a patient. Will talk with [facility] when they arrive to see about transport for pt back to SNF
--- NOTE | 2023-02-20 21:01 | PC.NURSE ---
2015: [facility] in ED to drop off new patient. They state that they will transport the pt back to his ECF after cleaning their rig
[2023-02-20 21:16] VITALS: BP 102/60; PULSE 72; RESP 16; TEMP 36.6; O2SAT 98
--- NOTE | 2023-02-25 14:09 | PC.NURSE ---
02/25/23 Urine culture came back positive for EColi pt had a Rochine 1gm IM injection and put on cephalexin that will finish tomorrow [facility] notified and per Dr griffith will have a repeat UA and primary doctor notified
== END 2023-02-20 21:18 | disposition home or self-care (01) ==
PROVIDERS: Emergency Provider Emergency Medicine; PCP Physician Assistant
DX: N30.01 Acute cystitis with hematuria (principal); E11.9 Type 2 diabetes mellitus without complications; F03.90 Unspecified dementia, unspecified severity, without behavioral disturbance, psychotic disturbance, mood disturbance, and anxiety; Z87.891 Personal history of nicotine dependence
CPT/HCPCS: 36415; 74176; 80053; 81001; 85025; 86140; 87077; 87086; 87088; 87186; 96372; 99284; A9270; J1885